=== PATIENT | male | born 1950 | race Caucasian/White ===

== ENCOUNTER 2017-01-10 10:17 | Day surgery (SDC) | payer MEDICARE, BC ==
[~2017-01-10 10:17] MED LIST: Sodium Chloride 0.9% 1,000 ML IV SCH; Sodium Chloride 0.9% 10 ML Syringe FLUSH PRN
[2017-01-10] MEDS ORDERED: Propofol 200 MG/20 ML SDV ONE (11:45)
[2017-01-10 12:01] VITALS: BP 130/77
--- NOTE | 2017-01-10 12:19 | OR ---
DATE OF OPERATION: 01/10/2017 PREOPERATIVE DIAGNOSES: 1. Dysphagia. 2. Gastroesophageal reflux disease. POSTOPERATIVE DIAGNOSES: 1. Dysphagia. 2. Gastroesophageal reflux disease. OPERATION: Esophagogastroduodenoscopy with biopsies. COMPLICATIONS: None. DRAINS: None. SPECIMENS: 1. Duodenal bulb biopsy. 2. Distal esophageal biopsy. COMPLICATIONS: None. DRAINS: None. ESTIMATED BLOOD LOSS: Minimal. ANESTHESIA: General propofol anesthesia. INDICATION: Mr. Penaloza is a 66-year-old gentleman, who was recently admitted for a foreign body entrapment in his esophagus. This was subsequently released by upper endoscopy performed by my partner, Dr. Ricardo in [place]. He was then subsequently discharged and he is here for followup esophagogastroduodenoscopy. The above-mentioned procedure was explained. The risks, benefits, and complications were explained. The patient understood and agreed and he was brought to the operating room. DESCRIPTION OF PROCEDURE: The patient was brought to the operating room and placed in the left lateral decubitus position on the operating room table. Satisfactory general propofol anesthesia was administered, a mouth guard was placed, and the head of the bed was elevated to 45 degrees. We began by placing the endoscope into the oral cavity, and then under direct visualization, the endoscope was then advanced down to the second portion of the duodenum. This was identified by the ampulla as well as bile. The duodenal mucosa was then evaluated. The second portion of the duodenum appeared within normal limits. The bulb of the duodenum, however, showed evidence of a granular duodenitis and a biopsy at this site was taken. This was passed off for permanent histology. Hemostasis was satisfactory. Next, careful evaluation of the pylorus and antrum revealed no significant findings. I then performed a retroflexion maneuver, which showed the suggestion of a hiatal hernia, however, this could not be easily characterized in retroflexion maneuver. The remainder of the stomach was within normal limits. I then subsequently slowly advanced the endoscope out of the stomach and was able then to measure from the diaphragmatic pinch to the GE junction, approximately 4 cm [id number] sized hiatal hernia. The Z-line was slightly irregular, but no significant tongues to suggest Choudhary's esophagus. I then took some biopsies of the distal esophagus and these were two biopsies and they were at approximately the distal esophagus and the Z-line. These were random biopsies. These were both passed off for permanent histology. All biopsies were taken with the cold biopsy forceps. The remainder of the esophagus was then evaluated and this appeared satisfactory with no evidence of any obstructing mass or lesion. The remainder of the hypopharynx appeared within normal limits. There was a slightly enlarged epiglottis, otherwise, no other findings could be identified. The endoscope was then subsequently withdrawn. The patient tolerated the procedure well. There were no complications. Instrument count was correct. The patient was awoken in the OR and taken to the PACU for recovery. I do recommend upper GI, which will be ordered for in [place]. RAMON/JS /[id number]
== END 2017-01-10 13:05 | disposition home or self-care (01) ==
LOC: LB.SDS 10:17
PROVIDERS: ATTEND Surgery
PROC: 0DB98ZX Excision of Duodenum, Via Natural or Artificial Opening Endoscopic, Diagnostic (ICD-10-PCS; principal; 2017-01-10)
PROC: 0DB38ZX Excision of Lower Esophagus, Via Natural or Artificial Opening Endoscopic, Diagnostic (ICD-10-PCS; 2017-01-10)
DX: R13.10 Dysphagia, unspecified (principal); K21.9 Gastro-esophageal reflux disease without esophagitis; K44.9 Diaphragmatic hernia without obstruction or gangrene; Z79.899 Other long term (current) drug therapy
CPT/HCPCS: 43239; 82962; 88305; J2704; J7040